=== PATIENT | female | born 1970 | race Caucasian/White ===

== ENCOUNTER 2017-07-09 14:31 | Emergency (ER) | payer SELFPAY ==
[~2017-07-09] VITALS: Ht 160 cm; Wt 57.2 kg
[2017-07-09 16:39] VITALS: BP 122/84
[2017-07-09] MEDS ORDERED: LIDOCAINE 1% HCL (LOCAL ANESTH.) INJ 20ML MDV IN ONE (19:30)
[2017-07-09] MEDS ORDERED: KETOROLAC TROMETH 60MG/2ML VIAL IM ONE (20:15)
[2017-07-09] MEDS ORDERED: cefTRIAXone SOD 1,000 MG VL IM ONE (20:15)
== END 2017-07-09 20:58 | disposition home or self-care (01) ==
LOC: ER 14:41
DX: N61.1 Abscess of the breast and nipple (principal); Z88.0 Allergy status to penicillin
CPT/HCPCS: 10060; 87077; 87186; 87205; 96372; 99284; J0696; J1885

== ENCOUNTER 2019-05-19 08:23 | Emergency (ER) | payer MEDICAID ==
[~2019-05-19] VITALS: Ht 160 cm; Wt 47.6 kg
[2019-05-19 08:36] VITALS: BP 117/76
== END 2019-05-19 09:00 | disposition home or self-care (01) ==
LOC: ER 08:23
DX: K72.90 Hepatic failure, unspecified without coma (principal); Z76.0 Encounter for issue of repeat prescription; N18.9 Chronic kidney disease, unspecified; Z88.0 Allergy status to penicillin

== ENCOUNTER 2019-06-10 10:25 | Emergency (ER) | payer MEDICAID ==
[~2019-06-10] VITALS: Ht 160 cm; Wt 47.6 kg
[2019-06-10 10:41] VITALS: BP 96/58
== END 2019-06-10 11:57 | disposition home or self-care (01) ==
LOC: ER 10:25
DX: N18.9 Chronic kidney disease, unspecified (principal); Z76.0 Encounter for issue of repeat prescription; Z88.0 Allergy status to penicillin